=== PATIENT | male | born 1980 | race Caucasian/White ===

== ENCOUNTER → 2017-02-19 | Outpatient (CLI) | payer BC ==
[2017-02-19 11:54] LABS: Hepatitis B Surface Ag Index 0.08
[2017-02-19 11:59] LABS: Hepatitis B Core IgM Index 0.04
[2017-02-19 12:11] LABS: Hepatitis C Virus IgG Index 0.02
[2017-02-19 12:17] LABS: Hepatitis C Virus IgG Ab Negative (Negative)
[2017-02-20 07:52] LABS: HIV-1/HIV-2 Ab Screen NONREAC (NON REAC)
== END | disposition home or self-care (01) ==
LOC: LABWHC1 10:49
PROVIDERS: ATTEND Internal Medicine Infectious Disease
DX: B94.8 Sequelae of other specified infectious and parasitic diseases (principal)
CPT/HCPCS: 36415; 80074; 87389

== ENCOUNTER → 2017-03-11 | Outpatient (CLI) | payer BC | END | disposition home or self-care (01) | LOC: RADECHMAIN 12:55 | PROVIDERS: ATTEND Internal Medicine Infectious Disease | DX: R00.1 Bradycardia, unspecified (principal); R00.0 Tachycardia, unspecified | CPT/HCPCS: 93225; 93226 ==

== ENCOUNTER → 2017-07-14 | Outpatient (CLI) | payer BC | END | disposition home or self-care (01) | LOC: LABWHC1 10:00 | PROVIDERS: ATTEND Nurse Practitioner Adult Health | DX: M79.1 Myalgia (principal) | CPT/HCPCS: 87328; 87329 ==

== ENCOUNTER → 2017-07-16 | Outpatient (CLI) | payer BC ==
--- NOTE | 2017-07-16 10:31 | MR ---
PRE AND POSTCONTRAST ENHANCED MRI OF THE BRAIN: CLINICAL HISTORY: Eye inflammation, Brain fog, Lyme Disease CONTRAST: 15 ML Multihance COMPARISON: February 14, 2000 Multiplanar and multispin-echo imaging of the brain was performed both before and after the administr ation of contrast. The ventricles, basal cisterns and sulci overlying the cerebral convexities are within normal limits. There is no evidence for midline shift or mass effect. Acute intracranial hemorrhage or extra-axial collection is not evident. One or 2 tiny nonspecific foci of increased signal within the deep white matter of the right cerebral hemisphere. Following contrast administration, there is no evidence for pathologic enhancement or enhancing mass. The paranasal sinuses and mastoid air cells are well-aerated. IMPRESSION: One or 2 tiny nonspecific foci of increased signal within the deep white matter of the right cerebral hemisphere.
== END ==
LOC: RADMRIMAIN 09:10
PROVIDERS: ATTEND Internal Medicine Infectious Disease
DX: A69.20 Lyme disease, unspecified (principal); R90.89 Other abnormal findings on diagnostic imaging of central nervous system
CPT/HCPCS: 70553; A9577

== ENCOUNTER → 2017-11-26 | Outpatient (CLI) | payer BC ==
--- NOTE | 2017-11-27 08:48 | XR ---
EXAMINATION TYPE: XR chest 2V DATE OF EXAM: 11/26/2017 COMPARISON: Prior chest x-ray 10/31/2016 HISTORY: Ptosis TECHNIQUE: Frontal and lateral views of the chest are obtained. FINDINGS: There is no focal air space opacity, pleural effusion, or pneumothorax seen. The cardiac silhouette size is within normal limits. There is a mild spinal curvature. The osseous structures ar e intact. IMPRESSION: No acute cardiopulmonary process.
== END | disposition home or self-care (01) ==
LOC: RADXRMAIN 16:34
PROVIDERS: ATTEND Internal Medicine Infectious Disease
DX: Q10.0 Congenital ptosis (principal)
CPT/HCPCS: 71020

== ENCOUNTER → 2018-09-14 | Outpatient (CLI) | payer BC ==
--- NOTE | 2018-09-14 14:46 | EEG ---
ELECTROENCEPHALOGRAM REPORT DATE OF SERVICE: 09/14/2018 REASON FOR TESTING: Night terrors, rule out seizure. DESCRIPTION OF THE PROCEDURE: This EEG was performed using a 21 channel digital electroencephalograph, following international 10-20 system. DESCRIPTION OF THE RECORDING: From the beginning of the tracing, and with patient's eyes closed, the background rhythm was mostly consisting of 9 Hz alpha frequency in the posterior occipital leads. No obvious asymmetry is seen. Frequent muscle artifact and occasional movement artifacts are seen. Photic stimulation was performed with a minimal driving response seen. No pathological waves were elicited. Hyperventilation was performed with a minimal buildup of amplitude seen. Again, no pathological waves were elicited. Later in the tracing, the patient does reach stage II of sleep, and occasional K complexes and sleep spindles are seen. No epileptiform discharges were seen throughout the tracing. His EKG lead showed a regular rate and rhythm. INTERPRETATION: This asleep and awake EEG can be considered within normal limits. There was no asymmetry seen. No epileptiform discharges were noticed. The absence of epileptiform discharges does not rule out the diagnosis of epilepsy; therefore clinical correlation is recommended. MMODL / IJN: [id number] /
== END | disposition home or self-care (01) ==
LOC: NEUROMAIN 07:51
PROVIDERS: ATTEND Internal Medicine Infectious Disease
DX: R44.3 Hallucinations, unspecified (principal)
CPT/HCPCS: 95819

== ENCOUNTER → 2020-02-02 | Outpatient (CLI) | payer BC | END | disposition home or self-care (01) | LOC: LABWHC1 14:08 | PROVIDERS: ATTEND Ophthalmology | DX: H20.019 Primary iridocyclitis, unspecified eye (principal) | CPT/HCPCS: 36415; 86480 ==

== ENCOUNTER → 2020-10-29 | Outpatient (CLI) | payer BC ==
--- NOTE | 2020-10-30 07:18 | US ---
EXAMINATION TYPE: US thyroid st tissue head/neck DATE OF EXAM: 10/29/2020 COMPARISON: 09/29/2017 CLINICAL HISTORY: E04.1 SINGLE THYROID NODULE. Thyroid nodule per order. GLAND SIZE: Right Lobe: 5.1 x 2.1 x 1.7 cm Overall Parenchyma: homogenous Left Lobe: 4.1 x 1.6 x 1.3 cm Overall Parenchyma: homogeneous Isthmus Thickness: 0.38 cm NODULES RIGHT: # of nodules measured on right: 0 LEFT: # of nodules measured on left: 1 1. 0.5 X 0.5 x 0.4 cm solid or almost completely solid, isoechoic nodule, which is wider than tall, with ill-defined margins, without echogenic foci. Prior size: 0.7 x 0.5 x 0.7 cm Bilateral neck scanned, no evidence of lymphadenopathy. IMPRESSION: 1. Slight interval reduction in size of a subcentimeter left thyroid nodule. 2. Right lobe of thyroid appears enlarged.
== END | disposition home or self-care (01) ==
LOC: RADUSWWP 16:50
PROVIDERS: ATTEND Family Medicine
DX: E04.1 Nontoxic single thyroid nodule (principal)
CPT/HCPCS: 76536

== ENCOUNTER → 2020-11-15 | Outpatient (CLI) | payer BC ==
--- NOTE | 2020-11-15 08:33 | MR ---
EXAMINATION TYPE: MR brain wo/w con DATE OF EXAM: 11/15/2020 COMPARISON: MRI brain July 16, 2017 HISTORY: Headaches TECHNIQUE: Multiplanar, multisequence images of the brain and brainstem is performed without and with IV contras t, utilizing 8 mL intravenous Gadavist . FINDINGS: Diffusion weighted images demonstrate no evidence of a recent infarct or other diffusion ab normality. There is no extra-axial fluid collection or significant new white matter signal abnormali ty. There are approximately 5 punctate scattered T2 hyperintense lesions redemonstrated. For referenc e 2 mm lesion posterior left frontal lobe at level of coronal radiata axial image 21 redemonstrated. The ventricular system and cisternal spaces remain normal in size and appearance. The brain volume i s age appropriate. Midline structures demonstrate normal morphology. The craniocervical junction appears within normal limits. Post contrast images demonstrate no abnormal enhancement. The dural venous sinuses appear pa tent. The visualized sinuses are clear and the globes are intact. IMPRESSION: Stable minimal nonspecific white matter changes. No suspicious enhancement. No significan t change from prior MRI.
== END | disposition home or self-care (01) ==
LOC: RADMRIMAIN 07:24
PROVIDERS: ATTEND Family Medicine
DX: R90.82 White matter disease, unspecified (principal)
CPT/HCPCS: 70553; A9585

== ENCOUNTER → 2022-02-04 | Outpatient (CLI) | payer BC ==
--- NOTE | 2022-02-04 16:01 | MR ---
EXAMINATION TYPE: MR hip LT wo con DATE OF EXAM: 02/04/2022 COMPARISON: No radiographic correlation available. HISTORY: 41-year-old male M24.159 Acetabular labrum tear, pain in left hip after a fall on it. TECHNIQUE: Multiplanar, multisequence images of the left hip were obtained without IV contrast. FINDINGS: There is focal soft tissue edema along the lateral and posterolateral aspect of the left hip. Edema o verlies the superficial fascia of the inferior gluteus maximize and there is mild underlying superfic ial muscular edema as well. In addition, there is curvilinear low signal line on axial and coronal T1 along the anterior acetabul um at the junction with the left superior pubic ramus, axial image 23, coronal image 9, and correspon ding marrow edema here. No discrete labral tear given the radiographic technique. No hip joint effusion. No acute fracture id entified of the proximal femur on either side. Small superior femoral head neck junction osseous excrescences on either side. Small area of fibrocys tic change at the anterior femoral head neck junction at the right hip. The bilateral gluteal and iliopsoas insertions as well as the rectus femoris and hamstring origins ap pear intact. SI joints appear symmetric and intact as does the pubic symphysis. The sacrum appears intact. Symmetric course, caliber, and signal intensity of the sciatic nerves. Prostate gland enlargement 4.9 cm wide. Mild circumferential bladder wall thickening probably reflect ing chronic bladder hypertrophy and can be correlated clinically. Small 1.2 cm perineural cyst along the left S2 neuroforamen. Incidental small bilateral hydroceles. IMPRESSION: 1. Soft tissue contusion along the lateral and posterolateral aspect of the left hip. Suspect some tr davion hemorrhagic fluid or edema along the superficial fascia here probably relating to a mild shear in jury. 2. Incomplete and nondisplaced fracture along the anterior left acetabulum at the junction with the l eft superior pubic ramus. 3. No discrete labral tear given nonarthrographic technique. 4. Small femoral head neck junction CAM deformities on either side which may predispose to femoral ac etabular impingement syndrome. Correlate with physical exam testing.
== END | disposition home or self-care (01) ==
LOC: RADMRIMAIN 11:01
PROVIDERS: ATTEND Nurse Practitioner Adult Health
DX: S32.415A Nondisplaced fracture of anterior wall of left acetabulum, initial encounter for closed fracture (principal); S70.02XA Contusion of left hip, initial encounter; M25.852 Other specified joint disorders, left hip; W19.XXXA Unspecified fall, initial encounter

== ENCOUNTER → 2022-04-01 | Outpatient (CLI) | payer BC ==
--- NOTE | 2022-04-01 15:18 | US ---
EXAMINATION TYPE: US thyroid st tissue head/neck DATE OF EXAM: 04/01/2022 COMPARISON: Thyroid ultrasound October 29, 2020 CLINICAL HISTORY: E04.1 NONTOXIC SINGLE THYROID NODULE. thyroid nodules GLAND SIZE: Right Lobe: 5.9 x 1.7 x 2.2 cm Overall Parenchyma: homogenous Left Lobe: 5.3 x 1.4 x 1.7 cm Overall Parenchyma: homogeneous Isthmus Thickness: .30 cm NODULES RIGHT: # of nodules measured on right: 0 LEFT: # of nodules measured on left: 0 ISTHMUS: # of nodules measured in the isthmus: 0 Bilateral neck scanned, no evidence of lymphadenopathy. Homogeneous normal-sized thyroid without discrete nodules on today's study. IMPRESSION: As above
== END | disposition home or self-care (01) ==
LOC: RADUSWWP 14:23
PROVIDERS: ATTEND Family Medicine
DX: E04.1 Nontoxic single thyroid nodule (principal)
CPT/HCPCS: 76536

== ENCOUNTER → 2022-04-11 | Outpatient (CLI) | payer BC ==
--- NOTE | 2022-04-11 12:53 | MR ---
EXAMINATION TYPE: MR lumbar spine wo con DATE OF EXAM: 04/11/2022 12:29 PM COMPARISON: 06/01/2014 HISTORY: Spondylosis w/o myelopathy or radiculopathy, low back pain Multiplanar, MultiSpin echo imaging of the lumbar spine was performed. L1-L2: Normal disc appearance without desiccation. No herniation, protrusion or disc bulging. No ca nal stenosis is present. Foramina are patent bilaterally. L2-L3: Normal disc appearance without desiccation. No herniation, protrusion or disc bulging. No ca nal stenosis is present. Foramina are patent bilaterally. L3-L4: Normal disc appearance without desiccation. No herniation, protrusion or disc bulging. No ca nal stenosis is present. Foramina are patent bilaterally. L4-L5: Mild decreased signal and loss of height compatible with degenerative disc disease. Mild poste rior disc bulge slightly improved relative to the prior examination. No evidence for herniation, cent ral stenosis or foraminal encroachment. L5-S1: Moderate disc desiccation. Right paracentral hard disc with the bulging disc and encapsulating spur. There is resultant right lateral recess stenosis and right foraminal encroachment unchanged fr om prior study. There is no evidence for central stenosis. Lumbar segments are intact. No paraspinal masses are identified. Conus medullaris has a normal appe arance. IMPRESSION: 1. Stable hard disc right paracentral location L5-S1 resulting in right lateral recess stenosis and r ight foraminal encroachment. 2. Slightly improved bulging disc at L4-5.
== END | disposition home or self-care (01) ==
LOC: RADMRIMAIN 11:37
PROVIDERS: ATTEND Physical Medicine & Rehabilitation
DX: M48.061 Spinal stenosis, lumbar region without neurogenic claudication (principal); M51.26 Other intervertebral disc displacement, lumbar region
CPT/HCPCS: 72148

== ENCOUNTER → 2024-08-19 | Outpatient (CLI) | payer BC ==
--- NOTE | 2024-08-20 10:50 | MR ---
EXAMINATION TYPE: MR lumbar spine wo con DATE OF EXAM: 08/19/2024 COMPARISON: 04/11/2022 HISTORY: Lower back pain, radiates into buttocks and left thigh. Prior ablation. CONTRAST: 0 mL intravenous Gadavist. TECHNIQUE: Multiplanar, multisequence images of the lumbar spine were acquired. FINDINGS: L5-S1: Mild disc bulge is present. No AP spinal canal stenosis is present. Mild facet changes are pre sent. No spinal canal stenosis or neural foraminal stenosis is present. L4-L5: There is a moderately large disc herniation extending centrally and to the inferior left parac entral region L4-5. This is moderate anterior thecal sac compression. Contact with the exiting nerve root may be present near the orifice. No foraminal stenosis is present. Disc height appears preserve d. L3-L4: No significant disc bulge or disc herniation. No spinal canal stenosis. No foraminal stenosi s. L2-L3: No significant disc bulge or disc herniation. No spinal canal stenosis. No foraminal stenosi s. L1-L2: No significant disc bulge or disc herniation. No spinal canal stenosis. No foraminal stenosi s. T12-L1: No significant disc bulge or disc herniation. No spinal canal stenosis. No foraminal stenos is. Cord terminates at the L1 level. Disc desiccation is present L5-S1. IMPRESSION: 1. Moderately large left paracentral disc herniation may have contact with the exiting nerve root at L4-5. Correlate with left L5 radicular symptoms. This herniation extends superiorly in the central re gion and inferiorly in the left paracentral region. [facility], , 08/20/2024 10:47 AM
== END | disposition home or self-care (01) ==
LOC: RADMRIMAIN 12:33
PROVIDERS: ATTEND Orthopaedic Surgery
DX: M47.816 Spondylosis without myelopathy or radiculopathy, lumbar region (principal); M51.26 Other intervertebral disc displacement, lumbar region
CPT/HCPCS: 72148

== ENCOUNTER → 2025-05-07 | Outpatient (CLI) | payer BC ==
--- NOTE | 2025-05-11 18:50 | MR ---
EXAMINATION TYPE: MR angio head wo con DATE OF EXAM: 05/07/2025 11:54 AM COMPARISON: None. CLINICAL INDICATION: Male, 44 years old with history of H34.233 RETINAL ARTERY BRANCH OCCLUSION, BILA TERAL, Retinal atery branch occlusion, golden spot on right eye TECHNIQUE: Multiplanar multiecho imaging on a 3.0 Rhonda magnet is performed through the [place]ighini of [place]. 3-D [id number] imaging is performed. Source images are reviewed on the computer in the axi al plane. Reconstructed images rotating on the computer are reviewed. IV Contrast: mL (None, if empty) FINDINGS: The internal carotid arteries bifurcate normally into A1 and M1 segments. The A2 segments are normal. Middle cerebral artery branches are normal. Ophthalmic arteries as visualized are patent. Anterior communicating artery is patent. The right posterior communicating artery is patent. The left posterior communicating artery is patent. Vertebrobasilar arteries within the [id number] are normal. Posterior cerebral vasculature is norm al. No suspicious aneurysm or aneurysmal dilatation is evident. No obstructions are identified. No significant flow-limiting stenosis is evident. IMPRESSION: 1. NORMAL MRA [place]. [facility], , 05/11/2025 6:48 PM
--- NOTE | 2025-05-11 21:43 | MR ---
EXAMINATION TYPE: MR venography head wo con DATE OF EXAM: 05/07/2025 11:52 AM COMPARISON: None. CLINICAL INDICATION: Male, 44 years old with history of H34.233 RETINAL ARTERY BRANCH OCCLUSION, BILA TERAL, Retinal artery branch occlusion, golden spot on right eye TECHNIQUE: Multiplanar multiecho imaging on a 3.0 Rhonda magnet is performed through the [place] [facility]. 3-D [id number] imaging is performed. Source images are reviewed on the computer in the axi al plane. Reconstructed images rotating on the computer are reviewed. Timeout was performed for MRV. IV Contrast: mL (None, if empty) FINDINGS: Right sigmoid sinus is dominant. Straight sinus and dural sinuses were visualized is normal . Additional venous structures appear normal. No filling defects are evident. No abrupt cut off.. IMPRESSION: 1. NORMAL INTRACRANIAL MRV [facility], , 05/11/2025 9:41 PM
--- NOTE | 2025-05-11 21:45 | MR ---
EXAMINATION TYPE: MR angio neck wo/w con DATE OF EXAM: 05/07/2025 12:37 PM COMPARISON: None. CLINICAL INDICATION: Male, 44 years old with history of H34.233 RETINAL ARTERY BRANCH OCCLUSION, BILA TERAL, Retinal artery branch occlusion, golden spot on right eye TECHNIQUE: Multiplanar multiecho imaging on a 3.0 Rhonda magnet is performed through the [place] nec k vessels. 3-D [id number] imaging is performed. Source images are reviewed on the computer in t he axial plane. Reconstructed images rotating on the computer are reviewed. IV Contrast: 8.5 mL Gadobutrol (None, if empty) FINDINGS: There is a three-vessel arch. Common carotid arteries bifurcate normally into internal and external carotid vessels. Vertebral arteries are codominant. No flow gap is evident. Internal carotid arteries are patent to the skull base. There is some slight artifact and reconstruction. IMPRESSION: 1. NORMAL MRA carotid and vertebral arteries. [facility], , 05/11/2025 9:43 PM
== END | disposition home or self-care (01) ==
LOC: RADMRIMAIN 10:16
PROVIDERS: ATTEND Ophthalmology
DX: H34.233 Retinal artery branch occlusion, bilateral (principal)
CPT/HCPCS: 70544 ×2; 70549; A9585

== ENCOUNTER → 2025-05-08 | Outpatient (CLI) | payer BC ==
--- NOTE | 2025-05-08 21:38 | MR ---
EXAMINATION TYPE: MR brain/orbits wo/w con DATE OF EXAM: 05/08/2025 9:17 PM COMPARISON: None. CLINICAL INDICATION: Male, 44 years old with history of H34.233, Blurry or golden spot in vision in rig ht eye. BRVO bilateral eyes. TECHNIQUE: Multiplanar, multiecho imaging on a 3.0 Rhonda magnet is performed through the brain. Stud y is performed within 24 hours of arrival to the hospital.Multiplanar, multiecho imaging on a 3.0 Altagracia la magnet is performed through the knee. IV Contrast: 8.5 mL Gadobutrol (None, if empty) FINDINGS: The craniovertebral junction is normal. The pituitary is normal. Diffusion-weighted imaging is performed. No abnormal hyperintensity is present to suggest an acute i ntracranial infarct or acute ischemic change. Lobes are symmetrical. Optic nerves appear normal. Extraocular muscles appear normal. Optic chiasm is unremarkable. Punctate centrum semiovale white matter change is noted finding can be compatible with the patient's reported Lyme disease. Differential would also include migraine headaches multiple scl erosis microvascular ischemic change vasculitis. Series 501 image 22 There are scattered punctate areas of hyperintensity on T2 and Inversion Recovery weighted sequences which are non-specific but can be related to microvascular ischemic changes. Ventricles and sulci are appropriate for the patient age. No suspicious enhancement within the brain is evident on postcontrast imaging There is a retention cyst in the posterior left maxillary sinus. Following contrast no suspicious enhancement is evident IMPRESSION: 1. Solitary white matter change left centrum semiovale can be compatible with underlying disease. Dif ferential would include migraine headaches. Vasculitis, multiple sclerosis, vasculitis. [facility], , 05/08/2025 9:36 PM
== END | disposition home or self-care (01) ==
LOC: RADMRIMAIN 20:45
PROVIDERS: ATTEND Ophthalmology
DX: H34.233 Retinal artery branch occlusion, bilateral (principal); G35 Multiple sclerosis; I77.6 Arteritis, unspecified; R90.82 White matter disease, unspecified
CPT/HCPCS: 70543; 70553; A9585